=== PATIENT | male | born 1945 | race Caucasian/White ===

== ENCOUNTER 2017-06-30 17:59 | Inpatient (IN) | payer OTHER, MEDICARE, MEDICAID ==
[~2017-06-30] VITALS: Ht 180.3 cm; Wt 104.5 kg
[2017-06-30] MEDS ORDERED: aspirin 81mg tab.chew PO ONE (18:15)
[2017-06-30] MEDS ORDERED: ondansetron/PF 4mg/2ml inj IV ONE (18:30)
[2017-06-30] MEDS ORDERED: proCHLORperazine 10 MG/2 ml inj IV ONE (18:35)
[2017-06-30 18:42] LABS: BASOPHILS # (AUTO) 0.1 X10'3 (0-0.2); BASOPHILS % (AUTO) 0.8 % (0-1); EOSINOPHILS # (AUTO) 0.1 X10'3 (0-0.9); EOSINOPHILS % (AUTO) 1.6 % (0-6); HEMOGLOBIN 12.1 g/dl (14.0-17.9); LYMPHOCYTES # (AUTO) 2.5 X10'3 (1.1-4.8); LYMPHOCYTES % (AUTO) 30.7 % (21-51); MEAN CORPUSCULAR HGB CONC 33.5 % (33.0-36.5); MEAN CORPUSCULAR VOLUME 95.3 FL (78-98); MEAN PLATELET VOLUME 9.1 FL (7.4-10.4); MONOCYTES # (AUTO) 0.5 X10'3 (0-0.9); MONOCYTES % (AUTO) 5.9 % (2-12); PLATELET COUNT 232 X10'3 (140-440); RED BLOOD COUNT 3.78 X10'6 (4.70-6.10); RED CELL DISTRIBUTION WIDTH 13.4 % (11.5-14.5); WHITE BLOOD COUNT 8.1 X10'3 (4.5-11.0)
[2017-06-30 19:11] LABS: ALANINE AMINOTRANSFERASE 18 U/L (12-78); ALBUMIN 3.7 G/DL (3.4-5.0); ALBUMIN/GLOBULIN RATIO 1.1 (1.1-1.5); ALKALINE PHOSPHATASE 73 IU/L (46-116); ANION GAP 12 (8-16); ASPARTATE AMINO TRANSFERASE 17 U/L (10-37); BILIRUBIN,TOTAL 0.4 MG/DL (0.1-1.0); BLOOD UREA NITROGEN 18 MG/DL (7-18); BUN/CREATININE RATIO 13.8 (5.4-32.0); CALCIUM 8.6 MG/DL (8.5-10.1); CHLORIDE 107 MMOL/L (99-107); GLUCOSE 176 MG/DL (70-104); MAGNESIUM 1.7 MG/DL (1.5-2.4); POTASSIUM 4.1 MMOL/L (3.5-5.1); SODIUM 143 MMOL/L (135-145); TOTAL CARBON DIOXIDE 24.1 MMOL/L (24-32); TOTAL PROTEIN 7.2 G/DL (6.4-8.2); eGFR 55 ML/MIN
[2017-06-30 19:20] LABS: PROTHROMBIN TIME 10.6 SECONDS (9.0-12.0)
[2017-06-30] MEDS ORDERED: normal saline 1000ml 1,000 ML IV ONE (19:20)
[2017-06-30] MEDS: hydrALAZINE 20mg/ml inj. IV ONE ×2 (21:13→21:18)
[2017-06-30] MEDS ORDERED: ASPI-1265 PO (21:27)
[2017-06-30] MEDS ORDERED: QUET25TA PO ×2 (21:27)
[2017-06-30] MEDS ORDERED: CARV-50 PO (21:27)
[2017-06-30] MEDS ORDERED: CHOL400T32 PO (21:27)
[2017-06-30] MEDS ORDERED: LISI40TA4 PO (21:27)
[2017-06-30] MEDS ORDERED: ATOR10TA87 PO (21:27)
[2017-06-30] MEDS ORDERED: SPIR25TA3 PO (21:27)
[2017-06-30] MEDS ORDERED: DONE10TA6 PO (21:27)
[2017-06-30] MEDS ORDERED: normal saline 1000ml 1,000 ML IV SCH (22:58)
[2017-06-30] MEDS ORDERED: magnesium 4gm in 100ml NS 100 ML IV PRN (23:00)
[2017-06-30] MEDS ORDERED: potassium Cl 20 mEq SR tablet PO PRN ×2 (23:00)
[2017-06-30] MEDS ORDERED: magnesium 2GM in 50ml NS 50 ML IV PRN (23:00)
[2017-06-30] MEDS ORDERED: ondansetron/PF 4mg/2ml inj IV PRN (23:00)
[2017-06-30] MEDS ORDERED: magnesium hydroxide 30ml (MOM) UD suspension PO PRN (23:00)
[2017-06-30] MEDS ORDERED: acetaminophen 325mg tablet PO PRN (23:00)
[2017-06-30] MEDS ORDERED: mag hydrox/Alum hydrox/simeth 30ml oral suspension PO PRN (23:00)
[2017-06-30] MEDS ORDERED: potassium Cl 40MEQ/NS 500ml 500 ML IV PRN ×2 (23:00)
[2017-06-30 23:50] VITALS: BP 153/77
[2017-06-30 23:52] LABS: CHOL/HDL RATIO 2.6 (0.00-4.99); CHOLESTEROL 113 MG/DL (0-200); HDL CHOLESTEROL 44 MG/DL (35-60); LDL CHOLESTEROL 49 MG/DL (50-100); TRIGLYCERIDES 182 MG/DL (20-135)
[2017-07-01] MEDS: donepezil 5mg tablet PO SCH ×2 (01:02→20:35)
[2017-07-01 05:00] VITALS: BP 133/74
[2017-07-01 06:00] VITALS: BP 133/74
[2017-07-01 06:21] LABS: BASOPHILS % (AUTO) 0.3 % (0-1); EOSINOPHILS % (AUTO) 0 % (0-6); HEMATOCRIT 35.1 % (42.0-52.0); HEMOGLOBIN 11.8 g/dl (14.0-17.9); LYMPHOCYTES % (AUTO) 14.1 % (21-51); MEAN CORPUSCULAR HEMOGLOBIN 32.3 PG (27.0-31.0); MEAN CORPUSCULAR HGB CONC 33.6 % (33.0-36.5); MEAN CORPUSCULAR VOLUME 96.2 FL (78-98); MEAN PLATELET VOLUME 9.2 FL (7.4-10.4); MONOCYTES # (AUTO) 0.4 X10'3 (0-0.9); MONOCYTES % (AUTO) 6.2 % (2-12); NEUTROPHILS # (AUTO) 5.4 X10'3 (1.8-7.7); NEUTROPHILS % (AUTO) 79.4 % (42-75); PLATELET COUNT 207 X10'3 (140-440); RED BLOOD COUNT 3.65 X10'6 (4.70-6.10); RED CELL DISTRIBUTION WIDTH 13.1 % (11.5-14.5); WHITE BLOOD COUNT 6.8 X10'3 (4.5-11.0)
[2017-07-01 06:42] LABS: ALANINE AMINOTRANSFERASE 19 U/L (12-78); ALBUMIN 3.5 G/DL (3.4-5.0); ALKALINE PHOSPHATASE 67 IU/L (46-116); ANION GAP 12 (8-16); ASPARTATE AMINO TRANSFERASE 21 U/L (10-37); BILIRUBIN,TOTAL 0.6 MG/DL (0.1-1.0); BLOOD UREA NITROGEN 16 MG/DL (7-18); BUN/CREATININE RATIO 13.3 (5.4-32.0); CALCIUM 8.7 MG/DL (8.5-10.1); CHLORIDE 109 MMOL/L (99-107); CHOL/HDL RATIO 2.1 (0.00-4.99); CHOLESTEROL 105 MG/DL (0-200); GLUCOSE 114 MG/DL (70-104); HDL CHOLESTEROL 50 MG/DL (35-60); LDL CHOLESTEROL 46 MG/DL (50-100); MAGNESIUM 1.4 MG/DL (1.5-2.4); POTASSIUM 3.9 MMOL/L (3.5-5.1); SODIUM 144 MMOL/L (135-145); TOTAL CARBON DIOXIDE 23.2 MMOL/L (24-32); TRIGLYCERIDES 121 MG/DL (20-135); eGFR 60 ML/MIN
[2017-07-01] MEDS: spironolactone 25 MG tablet PO SCH (07:30)
[2017-07-01] MEDS: aspirin 81mg tab.chew PO SCH (07:31)
[2017-07-01] MEDS: atorvastatin 10mg tablet PO SCH (07:31)
[2017-07-01] MEDS: lisinopril 20mg tablet PO SCH (07:32)
[2017-07-01] MEDS: cholecalciferol (vitamin D) 400 unit tablet PO SCH ×2 (07:32→20:35)
[2017-07-01] MEDS: QUEtiapine 25mg tablet PO SCH (07:32)
[2017-07-01] MEDS: magnesium Cl slow-release 64mg tablet PO PRN ×2 (07:33→20:36)
[2017-07-01] MEDS: heparin, porcine 5000 units/ml vial SQ SCH ×2 (07:33→20:35)
[2017-07-01] MEDS: K and/or MAG REPLACEMENT MC SCH (08:00)
[2017-07-01] MEDS ORDERED: carVEDilol 12.5mg tablet PO SCH (08:00)
[2017-07-01 10:00] VITALS: BP 139/79
[2017-07-01] MEDS ORDERED: LORazepam 2 mg/ml vial IV ONE (10:55)
[2017-07-01 18:00] VITALS: BP 160/89
[2017-07-01] MEDS ORDERED: QUEtiapine 25mg tablet PO SCH (21:00)
[2017-07-01] MEDS: carVEDilol 12.5mg tablet PO SCH (21:40)
[2017-07-01 22:00] VITALS: BP 156/92
[2017-07-02 05:02] VITALS: BP 131/71
[2017-07-02 07:15] LABS: BASOPHILS % (AUTO) 0.4 % (0-1); EOSINOPHILS # (AUTO) 0.1 X10'3 (0-0.9); EOSINOPHILS % (AUTO) 1.6 % (0-6); HEMATOCRIT 36.3 % (42.0-52.0); HEMOGLOBIN 12.2 g/dl (14.0-17.9); LYMPHOCYTES # (AUTO) 1.2 X10'3 (1.1-4.8); LYMPHOCYTES % (AUTO) 21.3 % (21-51); MEAN CORPUSCULAR HEMOGLOBIN 32.2 PG (27.0-31.0); MEAN CORPUSCULAR HGB CONC 33.5 % (33.0-36.5); MEAN CORPUSCULAR VOLUME 96.2 FL (78-98); MEAN PLATELET VOLUME 8.9 FL (7.4-10.4); MONOCYTES # (AUTO) 0.4 X10'3 (0-0.9); MONOCYTES % (AUTO) 7.4 % (2-12); NEUTROPHILS % (AUTO) 69.3 % (42-75); PLATELET COUNT 210 X10'3 (140-440); RED BLOOD COUNT 3.78 X10'6 (4.70-6.10); RED CELL DISTRIBUTION WIDTH 13.4 % (11.5-14.5); WHITE BLOOD COUNT 5.8 X10'3 (4.5-11.0)
[2017-07-02 07:37] LABS: ALANINE AMINOTRANSFERASE 19 U/L (12-78); ALBUMIN 3.8 G/DL (3.4-5.0); ALBUMIN/GLOBULIN RATIO 1.1 (1.1-1.5); ALKALINE PHOSPHATASE 72 IU/L (46-116); ANION GAP 9 (8-16); ASPARTATE AMINO TRANSFERASE 13 U/L (10-37); BILIRUBIN,TOTAL 0.7 MG/DL (0.1-1.0); BLOOD UREA NITROGEN 11 MG/DL (7-18); BUN/CREATININE RATIO 8.5 (5.4-32.0); CALCIUM 9.1 MG/DL (8.5-10.1); CHLORIDE 108 MMOL/L (99-107); GLUCOSE 113 MG/DL (70-104); MAGNESIUM 1.7 MG/DL (1.5-2.4); SODIUM 145 MMOL/L (135-145); TOTAL CARBON DIOXIDE 27.9 MMOL/L (24-32); TOTAL PROTEIN 7.4 G/DL (6.4-8.2); eGFR 55 ML/MIN
[2017-07-02] MEDS: spironolactone 25 MG tablet PO SCH (07:37)
[2017-07-02] MEDS: heparin, porcine 5000 units/ml vial SQ SCH (07:37)
[2017-07-02] MEDS: carVEDilol 12.5mg tablet PO SCH (07:37)
[2017-07-02] MEDS: atorvastatin 10mg tablet PO SCH (07:37)
[2017-07-02] MEDS: aspirin 81mg tab.chew PO SCH (07:37)
[2017-07-02] MEDS: QUEtiapine 25mg tablet PO SCH (07:38)
[2017-07-02] MEDS: cholecalciferol (vitamin D) 400 unit tablet PO SCH (07:38)
[2017-07-02] MEDS: lisinopril 20mg tablet PO SCH (07:38)
[2017-07-02] MEDS: K and/or MAG REPLACEMENT MC SCH (07:54)
[2017-07-02] MEDS ORDERED: carVEDilol 12.5mg tablet PO SCH (08:00)
[2017-07-02 12:22] VITALS: BP 116/59
[2017-07-02] MEDS ORDERED: Carvedilol PO (16:52)
== END 2017-07-02 17:40 | disposition home or self-care (01) | DRG 312 ==
LOC: ER 17:59 → ED HOLD 22:58 → ORTHO 4S 23:45
PROVIDERS: ADMIT Internal Medicine; ATTEND Family Medicine
DX: R55 Syncope and collapse (principal); I50.23 Acute on chronic systolic (congestive) heart failure; S09.90XA Unspecified injury of head, initial encounter; D64.9 Anemia, unspecified; I65.23 Occlusion and stenosis of bilateral carotid arteries; F03.90 Unspecified dementia, unspecified severity, without behavioral disturbance, psychotic disturbance, mood disturbance, and anxiety; I11.0 Hypertensive heart disease with heart failure; W18.39XA Other fall on same level, initial encounter; I44.7 Left bundle-branch block, unspecified; I25.10 Atherosclerotic heart disease of native coronary artery without angina pectoris; N28.9 Disorder of kidney and ureter, unspecified; E78.5 Hyperlipidemia, unspecified; R00.1 Bradycardia, unspecified; R74.8 Abnormal levels of other serum enzymes; Z79.82 Long term (current) use of aspirin; I25.2 Old myocardial infarction; Y93.89 Activity, other specified; Y92.89 Other specified places as the place of occurrence of the external cause; Y99.8 Other external cause status; Z79.899 Other long term (current) drug therapy
CPT/HCPCS: 36415; 70450; 70551; 71045; 80053; 80061; 83735; 83880; 84484; 85025; 85610; 85651; 87070; 93005; 93306; 93880; 96361; 96374; 96375; 97116; 97161; 99285; J0360; J0780; J1644; J2060; J7030